=== PATIENT | male | born 1965 | race Caucasian/White ===

== ENCOUNTER 2021-03-10 06:43 | Outpatient (REF) | payer OTHER, SELFPAY ==
[2021-03-10 07:52] LABS: Alanine Aminotransferase 30 U/L (0-40); Anion Gap 14 (12-20); Blood Urea Nitrogen 22 mg/dL (9-16); Carbon Dioxide 25 mmol/L (22-29); Chloride 102 mmol/L (96-108); Cholesterol 248 mg/dL; Estimated Glomerular Filt Rate > 60; HDL Cholesterol 105 mg/dL; LDL Cholesterol Calculated 129 mg/dl; Potassium 4.5 mmol/L (3.3-5.1); Sodium 136 mmol/L (135-145); Triglycerides 73 mg/dL
[2021-03-10 08:23] LABS: Prostate Specific Antigen 0.76 ng/mL (<0.05-4.0)
== END 2021-03-10 06:44 | disposition home or self-care (01) ==
LOC: HO.LAB 06:43
PROVIDERS: PCP Internal Medicine; Visit Provider Internal Medicine
DX: Z00.00 Encounter for general adult medical examination without abnormal findings (principal); Z12.5 Encounter for screening for malignant neoplasm of prostate; I10 Essential (primary) hypertension; E78.00 Pure hypercholesterolemia, unspecified
CPT/HCPCS: 36415; 80051; 80061; 82565; 84153; 84460; 84520

== ENCOUNTER 2022-03-30 06:57 | Outpatient (REF) | payer OTHER, SELFPAY ==
[2022-03-30 08:00] LABS: Alanine Aminotransferase 81 U/L (0-40); Anion Gap 13 (12-20); Blood Urea Nitrogen 18 mg/dL (9-16); Carbon Dioxide 26 mmol/L (22-29); Chloride 102 mmol/L (96-108); Cholesterol 212 mg/dL; Estimated Glomerular Filt Rate > 60; HDL Cholesterol 78 mg/dL; LDL Cholesterol Calculated 119 mg/dl; Potassium 4.4 mmol/L (3.3-5.1); Sodium 137 mmol/L (135-145); Triglycerides 75 mg/dL
[2022-03-30 08:22] LABS: Prostate Specific Antigen 0.66 ng/mL (<0.05-4.0)
== END 2022-03-30 06:58 | disposition home or self-care (01) ==
LOC: HO.LAB 06:57
PROVIDERS: PCP Internal Medicine; Visit Provider Internal Medicine
DX: Z00.00 Encounter for general adult medical examination without abnormal findings (principal); I10 Essential (primary) hypertension; E78.00 Pure hypercholesterolemia, unspecified; Z12.5 Encounter for screening for malignant neoplasm of prostate
CPT/HCPCS: 36415; 80051; 80061; 82565; 84153; 84460; 84520

== ENCOUNTER → 2023-01-12 10:44 | Outpatient (BNVA) | payer OTHER, SELFPAY | PROVIDERS: PCP Nurse Practitioner Family; Visit Provider Physician Assistant Medical | DX: Z13.89 Encounter for screening for other disorder (principal) | CPT/HCPCS: 99203 ==

== ENCOUNTER 2023-03-29 06:39 | Outpatient (REF) | payer OTHER, SELFPAY ==
[2023-03-29 06:53] LABS: MANUAL DIFF FLAG NO
[2023-03-29 07:34] LABS: Basophils Absolute Auto 0.1 X10*3/uL (0.0-0.2); Basophils Percent Auto 1.1 % (0-2); Eosinophils Absolute Auto 0.4 X10*3/uL (0.0-0.4); Eosinophils Percent Auto 7.2 % (0-4); Hematocrit 43.9 % (42.0-52.0); Hemoglobin 14.9 g/dl (14.0-18.0); Imm Gran Abs Auto 0.04 X10*3/uL (0.00-0.03); Imm Gran Pct Auto 0.7 % (0.0-0.4); Lymphocytes Absolute Auto 1.8 X10*3/uL (1.2-4.9); Lymphocytes Percent Auto 33.3 % (20-40); Mean Corpuscular HGB Conc 33.9 g/dl (31.0-36.0); Mean Corpuscular Hemoglobin 30.1 pg (27.0-33.0); Mean Corpuscular Volume 88.7 fL (80.0-98.0); Mean Platelet Volume 10.2 fL (9.4-12.4); Monocytes Absolute Auto 0.5 X10*3/uL (0.1-1.2); Monocytes Percent Auto 8.9 % (2-11); Neutrophils Absolute Auto 2.6 x10*3/uL (2.0-8.3); Neutrophils Percent Auto 48.8 % (45-73); Platelet Count 260 X10*3/uL (160-400); Red Blood Count 4.95 X10*6/uL (4.60-5.80); White Blood Count 5.4 X10*3/uL (4.8-10.8)
[2023-03-29 08:03] LABS: Alanine Aminotransferase 25 U/L (0-40); Anion Gap 15 (12-20); Blood Urea Nitrogen 18 mg/dL (9-16); Carbon Dioxide 23 mmol/L (22-29); Chloride 105 mmol/L (96-108); Cholesterol 223 mg/dL; Estimated Glomerular Filt Rate > 60; HDL Cholesterol 82 mg/dL; LDL Cholesterol Calculated 129 mg/dl; Potassium 4.5 mmol/L (3.3-5.1); Sodium 138 mmol/L (135-145); Triglycerides 64 mg/dL
[2023-03-29 08:22] LABS: Ferritin 281 ng/mL (20-250); Prostate Specific Antigen 0.83 ng/mL (<0.05-4.0)
== END 2023-03-29 06:40 | disposition home or self-care (01) ==
LOC: HO.LAB 06:39
PROVIDERS: PCP Internal Medicine; Visit Provider Internal Medicine
DX: Z00.00 Encounter for general adult medical examination without abnormal findings (principal); Z12.5 Encounter for screening for malignant neoplasm of prostate; I10 Essential (primary) hypertension; K50.90 Crohn's disease, unspecified, without complications; E78.00 Pure hypercholesterolemia, unspecified
CPT/HCPCS: 36415; 80051; 80061; 82565; 82728; 84153; 84460; 84520; 85025

== ENCOUNTER 2024-03-23 06:12 | Outpatient (REF) | payer OTHER, SELFPAY ==
[2024-03-23 06:20] LABS: MANUAL DIFF FLAG NO
[2024-03-23 07:49] LABS: Basophils Absolute Auto 0.1 X10*3/uL (0.0-0.2); Basophils Percent Auto 1.1 % (0-2); Eosinophils Absolute Auto 0.3 X10*3/uL (0.0-0.4); Eosinophils Percent Auto 4.5 % (0-4); Hematocrit 40.6 % (42.0-52.0); Hemoglobin 13.7 g/dl (14.0-18.0); Imm Gran Abs Auto 0.09 X10*3/uL (0.00-0.03); Imm Gran Pct Auto 1.5 % (0.0-0.4); Lymphocytes Absolute Auto 1.5 X10*3/uL (1.2-4.9); Lymphocytes Percent Auto 23.5 % (20-40); Mean Corpuscular HGB Conc 33.7 g/dl (31.0-36.0); Mean Corpuscular Hemoglobin 30.3 pg (27.0-33.0); Mean Corpuscular Volume 89.8 fL (80.0-98.0); Mean Platelet Volume 10.2 fL (9.4-12.4); Monocytes Absolute Auto 0.6 X10*3/uL (0.1-1.2); Monocytes Percent Auto 9.7 % (2-11); Neutrophils Absolute Auto 3.7 x10*3/uL (2.0-8.3); Neutrophils Percent Auto 59.7 % (45-73); Platelet Count 258 X10*3/uL (160-400); Red Blood Count 4.52 X10*6/uL (4.60-5.80); Red Cell Distribution Width 13.2 % (11.0-16.0); White Blood Count 6.2 X10*3/uL (4.8-10.8)
[2024-03-23 08:22] LABS: Alanine Aminotransferase 25 U/L (0-40); Anion Gap 12 (12-20); Blood Urea Nitrogen 15 mg/dL (9-16); Carbon Dioxide 24 mmol/L (22-29); Chloride 108 mmol/L (96-108); Cholesterol 214 mg/dL (<200); Estimated Glomerular Filt Rate > 60; HDL Cholesterol 96 mg/dL (>40); LDL Cholesterol Calculated 95 mg/dL (<100); Sodium 140 mmol/L (135-145); Triglycerides 117 mg/dL (<150)
== END 2024-03-23 06:13 | disposition home or self-care (01) ==
LOC: HO.LAB 06:12
PROVIDERS: PCP Internal Medicine; Visit Provider Internal Medicine
DX: Z00.00 Encounter for general adult medical examination without abnormal findings (principal); I10 Essential (primary) hypertension; E78.00 Pure hypercholesterolemia, unspecified; K50.10 Crohn's disease of large intestine without complications
CPT/HCPCS: 36415; 80051; 80061; 82565; 84460; 84520; 85025

== ENCOUNTER 2024-10-19 08:52 | Day surgery (SDC) | payer OTHER, SELFPAY ==
[2024-10-18 06:34] VITALS: BMI 27.7
--- NOTE | 2024-10-18 09:17 | HO.ANESPROP2 ---
Documented by User: Mayra Colon NP 10/18/24 09:17 HPI - Anesthesia Eval Consult details Narrative: 59yo M for Colonoscopy [facility] Past Medical History Medical History (Updated 10/18/24 @ 06:30 by Vanita Granados RN) Crohn's colitis Surgical History Surgical History (Updated 10/18/24 @ 06:31 by Vanita Granados RN) Hx of arthroscopy of right knee History of esophagogastroduodenoscopy (EGD) H/O colonoscopy Social History Social History Patient Tobacco Use Status: Never used Tobacco Have you been hit, kicked, punched, or otherwise hurt by someone within the past year? If so, by whom?: No Are you DNR?: No Advance Directives: No Advance Directives Information Provided: Yes Nutrition Risks: No Nutritional Risk Meds Allergies Allergy/AdvReac Type Severity Reaction Status Date / Time No Known Allergies Allergy Unverified 08/14/20 17:13 [No Known Allergies*] Home Medications ?Medication ?Instructions ?Recorded ?Confirmed ?Last Taken ?Type ibuprofen 200 mg tablet 200 mg PO Q6H PRN Pain 10/18/24 10/18/24 Unknown History lisinopril 20 mg tablet 20 mg PO DAILY 10/18/24 10/18/24 Unknown History mesalamine 1.2 gram tablet,delayed 4.8 g PO DAILY 10/18/24 10/18/24 Unknown History release omega 5-egu-sqq-fish oil 1,200 mg 1 cap PO DAILY 10/18/24 10/18/24 Unknown History (144 mg-216 mg) capsule (Fish Oil) simvastatin 20 mg tablet 20 mg PO BEDTIME 10/18/24 10/18/24 Unknown History Exam Height,Weight and Vital Signs: Height 6 ft Weight 92.533 kg Assessment and Plan Assessment Anesthesia Assessment: Chart Reviewed Documented by User: Cheryl Ayala MD 10/19/24 09:14 [facility] Past Medical History Medical History (Updated 10/18/24 @ 06:30 by Vanita Granados RN) Crohn's colitis Family History Family history of problems with anesthesia: No Surgical History Surgical History (Updated 10/18/24 @ 06:31 by Vanita Granados RN) Hx of arthroscopy of right knee History of esophagogastroduodenoscopy (EGD) H/O colonoscopy History of Problems with Anesthesia: No Social History Social History Patient Tobacco Use Status: Never used Tobacco Have you been hit, kicked, punched, or otherwise hurt by someone within the past year? If so, by whom?: No Are you DNR?: No Advance Directives: No Advance Directives Information Provided: Yes Nutrition Risks: No Nutritional Risk Meds Allergies Allergy/AdvReac Type Severity Reaction Status Date / Time No Known Allergies Allergy Unverified 08/14/20 17:13 [No Known Allergies*] Home Medications ?Medication ?Instructions ?Recorded ?Confirmed ?Last Taken ?Type ibuprofen 200 mg tablet 200 mg PO Q6H PRN Pain 10/18/24 10/18/24 Unknown History lisinopril 20 mg tablet 20 mg PO DAILY 10/18/24 10/18/24 Unknown History mesalamine 1.2 gram tablet,delayed 4.8 g PO DAILY 10/18/24 10/18/24 Unknown History release omega 5-eys-iqh-fish oil 1,200 mg 1 cap PO DAILY 10/18/24 10/18/24 Unknown History (144 mg-216 mg) capsule (Fish Oil) simvastatin 20 mg tablet 20 mg PO BEDTIME 10/18/24 10/18/24 Unknown History Exam Airway Mallampati Class: II TM Dist: >3cm Neck ROM: Full Assessment and Plan Assessment Anesthesia Assessment: Anesthesia Plan Discussed Final Anesthetic Review Family History of Problems with Anesthesia: No History of Problems with Anesthesia: No NPO: Yes ASA Class: II Final Preanesthetic Review: No Changes in Pt Med Stat, Meds/Allgs Chart Reviewed, Consent Obtained/Reviewed, Anes Risks/Benef Reviewed and DNR Form (If Appl.) Patient Risk: Low Procedure Risk: Low Anesthetic Plan Anesthetic Plan: TIVA Disposition: Standard PACU
[2024-10-19 09:06] VITALS: BP 135/78; PULSE 110; RESP 20; TEMP 36.1; O2SAT 98
[2024-10-19] MEDS: Lactated Ringers 1,000 ML 100 ML IVCONT (09:24)
[2024-10-19 11:51] VITALS: BP 93/64; PULSE 82; RESP 12; TEMP 36.4; O2SAT 93
--- NOTE | 2024-10-19 11:51 | P.BOP_ITS ---
Brief Operative Note Date of Service: 10/19/24 Pre-op diagnosis: Crohn's, screening Post-op diagnosis: other (Same, R/O dysplasia) Procedure: Colonoscopy to the cecum and TI with biopsies Surgeon: Allan Rousseau MD Anesthesia: MAC Was an Comparative Sociology Professor used for this Procedure?: No Estimated blood loss (mL): 2.0 Pathology: other (A. Ascending colon B. Transverse colon C. Descending colon D. Sigmoid colon E. Rectum) Condition: stable Disposition: PACU
[2024-10-19 12:06] VITALS: BP 105/77; PULSE 78; RESP 16; O2SAT 96
[2024-10-19 12:21] VITALS: BP 113/80; PULSE 72; RESP 16; TEMP 36.6; O2SAT 96
--- NOTE | 2024-10-19 12:35 | OP_ITS ---
DATE OF SERVICE: 10/19/2024 SURGEON: Allan Rousseau MD INDICATIONS: The patient presents for evaluation of underlying history of Crohn's colitis and colorectal cancer screening. Full consent obtained from him for this, including risks of bleeding and perforation. PREOPERATIVE DIAGNOSIS: Colorectal cancer screening and Crohn's colitis. POSTOPERATIVE DIAGNOSIS: Colorectal cancer screening and Crohn's colitis, rule out dysplasia, mild diverticulosis, small internal hemorrhoids. PROCEDURE PERFORMED: Colonoscopy to cecum and terminal ileum with multiple biopsies. ESTIMATED BLOOD LOSS: COMPLICATIONS: ANESTHESIA: Monitored anesthesia care. ASSISTANTS: SPECIMENS: DESCRIPTION OF PROCEDURE: The patient was placed in the left lateral decubitus position. The digital rectal exam revealed no abnormalities. Specifically, there was no perianal disease suggestive of Crohn disease. The Olympus video pediatric colonoscope was entered into the rectum and advanced easily to the cecum. Once in the cecum, I did identify normal-appearing cecal pouch with appendiceal orifice and a normal-appearing ileocecal valve. The terminal ileum was cannulated and appeared normal. The scope was withdrawn back in the colon. The entire cecum and ileocecal valve appeared normal. The scope was slowly withdrawn assessing all mucosal surfaces carefully. Preparation was excellent. The only area of some colitis I noted was between 20 and 30 cm. This was very mild. The remainder of the colon appeared very normal without any sign of colitis, polyps, nor angiodysplasia. There were occasional diverticula in the sigmoid colon. I obtained multiple random biopsies in the ascending colon, transverse colon, descending colon, sigmoid colon and rectum. In the rectum, scope was retroflexed visualizing internal hemorrhoids, but no other pathology. The rectal mucosa appeared normal. Scope was straightened and withdrawn from the patient. He tolerated the procedure well and was returned to the recovery area in stable condition. IMPRESSION: 1. Very minimal changes of mild Crohn's colitis. 2. Rule out dysplasia. 3. Diverticulosis. 4. Internal hemorrhoids. PLAN: The results of biopsies will be checked. I would recommend a repeat colonoscopy in 5 years for further screening. He will continue his current regimen of mesalamine 4.8 g daily. He will be seen in 1 year for followup office visit, but was advised to call sooner as needed. He was advised to stay off all aspirin and NSAIDs for at least a week, but in general try to avoid them due to the underlying inflammatory bowel disease. MD ANN Todd/WILLIAM / [id number]
== END 2024-10-19 12:35 | disposition home or self-care (01) ==
PROVIDERS: PCP Internal Medicine; Visit Provider Internal Medicine
PROC: 0DJD8ZZ Inspection of Lower Intestinal Tract, Via Natural or Artificial Opening Endoscopic (ICD-10-PCS; CPT 45378; principal; 2024-10-19 10:20)
DX: Z12.11 Encounter for screening for malignant neoplasm of colon (principal); K50.10 Crohn's disease of large intestine without complications; K57.30 Diverticulosis of large intestine without perforation or abscess without bleeding; K64.8 Other hemorrhoids; Z79.899 Other long term (current) drug therapy; Z98.890 Other specified postprocedural states
CPT/HCPCS: 45380; 88305; J2003; J2250; J2704

== ENCOUNTER 2025-03-26 06:06 | Outpatient (REF) | payer OTHER, SELFPAY ==
--- OUTSIDE RECORDS SUMMARY | 2025-03-26 06:09 | XMS_ITS ---
Author Organization [facility] Address [address] [facility] [place] [address] Care Team Providers Care Sports Development Officer Name Role Phone Matt Gaming MD Primary Care Provider Liam Roberto [phone] REASON FOR VISIT cx 01/04 appt Encounters Encounter Location Date Provider [address] [facility] [place] [address] 01/17/2024 Liam Marcelo Plan Of Treatment No Information Progress Notes * Jesse VALLES RDOB: [birth year] (58 yo M)Acc No.[id number]:01/17/2024 Patient:?Jesse Valles :1965???Age:58 Y???Sex:Male Address:[address] [place], [address] * true * Date:? Generated for Printi ng/Fadaneg/eTransmitting on:?03/26/2025 06:09 AM EDT
--- OUTSIDE RECORDS SUMMARY | 2025-03-26 06:09 | XMS_ITS ---
Author Organization [facility] Address [address] [facility] [place] [address] Care Team Providers Care Manager Of Photography Name Role Phone Matt Gaming MD Primary Care Provider Liam Roberto [phone] Encounters Encounter Location Date Provider Diagnosis [address] [address] 01/24/2024 Liam Marcelo Plan Of Treatment No Information Progress Notes * Jesse VALLES RDOB: [birth year] (60 yo M)Acc No.[id number]:01/24/2024 Progress Notes Patient:?Jesse VALLES Provider:Tammi Marcelo DPM :1965???Age:58 Y???Sex:Male William e:01/24/2024 [address] [place] Pcp:Matt Gaming MD Subjective: * Chief Complaints: * ??? * Medical History:? Objective: * Vitals:? Assessment: Plan: * Treatment: * Images: * The named appointment provid er may or may not be the originator of this progress note, and it is not deemed complete until electronically signed by the appointment provider. Sign off status: Pending * Provider:Tammi Marcelo DPM Date:? 024 Generated for Printi ng/Faxing/eTransmitting on:?03/26/2025 06:09 AM EDT
[2025-03-26 06:21] LABS: MANUAL DIFF FLAG NO
[2025-03-26 07:19] LABS: Basophils Absolute Auto 0.1 X10*3/uL (0.0-0.2); Eosinophils Absolute Auto 0.2 X10*3/uL (0.0-0.4); Eosinophils Percent Auto 4.5 % (0-4); Hematocrit 40.2 % (42.0-52.0); Hemoglobin 13.9 g/dl (14.0-18.0); Imm Gran Abs Auto 0.05 X10*3/uL (0.00-0.03); Lymphocytes Absolute Auto 1.7 X10*3/uL (1.2-4.9); Lymphocytes Percent Auto 34.3 % (20-40); Mean Corpuscular HGB Conc 34.6 g/dl (31.0-36.0); Mean Corpuscular Hemoglobin 30.5 pg (27.0-33.0); Mean Corpuscular Volume 88.2 fL (80.0-98.0); Mean Platelet Volume 10.2 fL (9.4-12.4); Monocytes Absolute Auto 0.6 X10*3/uL (0.1-1.2); Monocytes Percent Auto 11.2 % (2-11); Neutrophils Absolute Auto 2.4 x10*3/uL (2.0-8.3); Platelet Count 221 X10*3/uL (160-400); Red Blood Count 4.56 X10*6/uL (4.60-5.80); Red Cell Distribution Width 12.7 % (11.0-16.0); White Blood Count 4.9 X10*3/uL (4.8-10.8)
[2025-03-26 07:47] LABS: Alanine Aminotransferase 31 U/L (0-40); Anion Gap 12 (12-20); Blood Urea Nitrogen 17 mg/dL (9-16); Carbon Dioxide 26 mmol/L (22-29); Chloride 105 mmol/L (96-108); Cholesterol 208 mg/dL (<200); Estimated Glomerular Filt Rate > 60; HDL Cholesterol 99 mg/dL (>40); LDL Cholesterol Calculated 98 mg/dL (<100); Potassium 3.9 mmol/L (3.3-5.1); Sodium 139 mmol/L (135-145); Triglycerides 56 mg/dL (<150)
== END 2025-03-26 06:07 | disposition home or self-care (01) ==
LOC: HO.LAB 06:06
PROVIDERS: PCP Internal Medicine; Visit Provider Internal Medicine
DX: I10 Essential (primary) hypertension (principal); E78.00 Pure hypercholesterolemia, unspecified; K50.10 Crohn's disease of large intestine without complications
CPT/HCPCS: 36415; 80051; 80061; 82565; 84460; 84520; 85025

== ENCOUNTER 2025-08-15 06:01 | Outpatient (REF) | payer OTHER, SELFPAY ==
--- OUTSIDE RECORDS SUMMARY | 2024-10-19 06:20 | XMS_ITS ---
Author Organization [facility] Address [address] [place] [address] Care Team Providers Care Inspector Aluminum Boat Name Role Phone Matt Gaming MD Primary Care Provider Allan Leonard [phone] REASON FOR VISIT screening,crohn's Problems Problem Type SNOMED Code ICD Code Onset Dates Problem Status W/U Status Risk Notes Problem Diverticular disease of colon (692639929) Diverticulosis of large intestine without perforation or abscess without bleeding (K57.30) Active confirmed Encounters Encounter Location Date Provider Diagnosis [facility] Outpatient [address] [place] [phone] 10/19/2024 Allan Rousseau Crohn''s disease o f colon without complication K50.10 ; Diverticulosis of large intestine without perforation or abscess without bleeding K57.30 and Other hemorrhoids K64.8 Assessments Encounter Date Diagnosis (ICD Code) Assessment Notes Treatment Notes Treatment Clinical Notes Section Notes 10/19/2024 Crohn''s disease of colon without complication (ICD-10 - K50.10) 10/19/2024 Diverticulosis of large intestine without perforation or abscess without bleeding (ICD-10 - K57.30) 10/19/2024 Other hemorrhoids (ICD-10 - K64.8) Plan Of Treatment Next Appt Details Provider Name:Allan Rousseau , 12/11/2025 02:40:00 PM, [address], [address], [place], [address], Progress Notes * SEPIDEH VALLESDOB: 5 (60 yo M)Acc No.[id number]:10/19/2024 COLON WITH MAC Patient: SEPIDEH JULIAN Provider: Maria Esther Rousseau MD :1965 A ge:59 Y S ex:Male Date:10/19/2024 Address:[id number] Pcp:Matt Gaming MD Subjective: * Chief Complaints: * 1 . Screening,crohn's. * Medical History: Objective: * Vitals: Assessment: * Assessment: 1. C rohn''s disease of colon without complication - K50.10 (Primary) 2 . D iverticulosis of large intestine without perforation or abscess without bleeding - K57.30 ? 3 . O ther hemorrhoids - K64.8 Plan: * Treatment: * Procedure Codes: 4 5380 COLONOSCOPY AND BIOPSY, 0529F INTRVL 3+YRS PTS CLNSCP DOCD, 0528F RCMND FLW-UP 10 YRS DOCD * * The named appointment provid er may or may not be the originator of this progress note, and it is not deemed complete until electronically signed by the appointment provider. Sign off status: Pending * Provider: Maria Esther Rousseau MD Date: 1 12/19/2023 Generated for Nilda smith/Leila/Aubreyitting on: 0 08/15/2025 06:04 AM EDT
--- OUTSIDE RECORDS SUMMARY | 2025-08-15 06:05 | XMS_ITS | Patient Health Record ---
Author Organization [facility] Address [address] [facility] [place] [address] Care Team Providers Care Wine Merchant Name Role Phone Matt Gaming MD Primary Care Provider Liam Roberto Unavailable [phone] Reason For Referral No Information Medications Medication SIG (Take, Route, Fr equency, Duration) Notes Start Date End Date Status Lisinopril 20 MG 1 tablet Orally Once a day Active Plan Of Treatment Pending Test Test Name Order Date X ray : Foot, right 3V 06/14/2016 Insurance Providers Payer Name Payer Address Payer Phone Subscriber Number Group Number Insured Name Patient Relationship to Insured Coverage Start Date Coverage End Date [employer] Benefits [address] [address] [place] [address] [id number] Jesse Valles Self - patient is the insured Medical (General) History Medical History History ICD Code Measles
--- OUTSIDE RECORDS SUMMARY | 2025-08-15 06:05 | XMS_ITS | Patient Health Record ---
Author Organization [facility] Address [address] [place] [address] Care Team Providers Care Rim Fire Priming Operator Name Role Phone Mekhi REAL, Matt Primary Care Provider Allan Leonard Unavailable [phone] Allergies No Known Allergies Results Component Value Reference Range Notes Pathology Reviewed date:08/08/2025 04:08:11 PM Interpretation: Performing Lab:[facility], [address] [place] [id number] Notes/Report: Reason For Referral No Information Medications Medication SIG (Take, Route, Fr equency, Duration) Notes Start Date End Date Status predniSONE 5 MG 8 of the 5mg pills(4 0mg) daily for 1 week, and then decrease by 1 pill(5mg) per week Orally Once a day for 56 days 08/08/2025 Active Simvastatin 20 MG 1 tablet in the even ing Orally Once a day for 30 day(s) Active Fish Oil Active Lisinopril 20 MG Orally Once a day Active Mesalamine 1.2 GM TAKE 4 TABLETS BY [facility] ONCE A DAY 90 DAYS for 90 Active ibuprofen prn Active Immunizations Vaccine Route Administration Date Status Comme nts Influenza Unknown 08/28/2020 Administered Social History Tobacco Use: Social History Observation Description Date Details (start date - stop date) Never Smoker NA - NA Tobacco Use/Smoking Question Answer Notes Patient is a nonsmoker Alcohol Screen Question Answer Notes Did you have a drink contain ing alcohol in the past year? Yes How often did you have a dri nk containing alcohol in the past year? 2 to 3 times a week (3 points) How many drinks did you have on a typical day when you were drinking in the past year? 1 or 2 drinks (0 point) How often did you have 6 or more drinks on one occasion in the past year? Never (0 point) Points 3 Interpretation Negative Section Notes: Nonsmoker; occ. beer Nonsmoker; occ. beer Nonsmoker; occ. beer Problems Problem Type SNOMED Code ICD Code Onset Dates Problem Status W/U Status Risk Notes Problem 022475507 Encounter for screening for malignant neoplasm of colon (Z12.11) Active confirmed Problem Diarrhea (60977872) Diarrhea (R19.7) Active confirmed Problem Diverticular disease of colon (899618183) Diverticulosis of large intestine without perforation or abscess without bleeding (K57.30) Active confirmed Problem 9384680 Crohns disease o f large intestine without complication (K50.10) Active confirmed Problem 8425759 Crohn's disease of large intestine without complication (K50.10) Active confirmed Problem 52979429 Crohns disease o f colon without complication (K50.10) Active confirmed Problem Crohn's disease of large bowel (8701830) Crohn''s disease of colon without complication (K50.10) Active confirmed Encounters Encounter Location Date Provider Diagnosis [facility] [place] [address] [place] [phone] 10/19/2024 Allan Rousseau Crohn''s disease of colon without complication K50.10 ; Diverticulosis of large intestine without perforation or abscess without bleeding K57.30 and Other hemorrhoids K64.8 [facility] [address] [facility] [address] [place] [address] 08/08/2025 Allan Rousseau Diarrhea R19.7 and Crohn''s disease of colon without complication K50.10 Assessments Encounter Date Diagnosis (ICD Code) Assessment Notes Treatment Notes Treatment Clinical Notes Section Notes 10/19/2024 Diverticulosis of large intestine without perforation or abscess without bleeding (ICD-10 - K57.30) 10/19/2024 Crohn''s disease of colon without complication (ICD-10 - K50.10) 08/08/2025 Diarrhea (ICD-10 - R19.7) 08/08/2025 Crohn''s disease of colon without complication (ICD-10 - K50.10) 10/19/2024 Other hemorrhoids (ICD-10 - K64.8) Plan Of Treatment Pending Test Test Name Order Date CHEM 7 PROFILE 01/20/2018 CHEM 7 PROFILE 03/23/2024 LIVER PROFILE 01/20/2018 LIVER PROFILE 03/23/2024 CRP 01/20/2018 CRP 08/08/2025 CRP 03/23/2024 CBC w DIFF 08/08/2025 CBC w DIFF 03/23/2024 CBC with MANUAL DIFFERENTIAL 01/20/2018 SED RATE (ESR) 01/20/2018 SED RATE (ESR) 08/08/2025 HEPATITIS B PROFILE 03/23/2024 CLOSTRIDIUM DIFF TOXIN A&B (C DIFF) 12/30 CLOSTRIDIUM DIFF TOXIN A&B (C DIFF) 04/28 STOOL WBC 01/20/2018 STOOL WBC 05/15/2018 GIARDIA AG, STOOL EIA 01/20/2018 GIARDIA AG, STOOL EIA 05/15/2018 OVA & PARASITES (O&P) 05/15/2018 OVA & PARASITES (O&P) 01/20/2018 CULTURE, STOOL 01/20/2018 CULTURE, STOOL 05/15/2018 Liver Panel 08/08/2025 CDiff with Reflex to PCR 08/08/2025 Calprotectin, Fecal 08/08/2025 T Spot TB 03/23/2024 GI PANEL 08/08/2025 Future Test Test Name Order Date COLONOSCOPY 06/01/2018 COLONOSCOPY 06/19/2024 Next Appt Details Provider Name:Allan Rousseau , 12/11/2025 02:40:00 PM, [address] [place] [address], [facility] [address], [place], [address], Insurance Providers Payer Name Payer Address Payer Phone Subscriber Number Group Number Insured Name Patient Relationship to Insured Coverage Start Date Coverage End Date [employer] [place] [address] [address] [place] [address] [id number] SEPIDEH VALLES Self - patient is the insured Medical (General) History Medical History History ICD Code Denies DE,DM,CVA,Lung disease,renal dise ase Crohn's colitis as below IBD--he underwent previous c olonoscopies in [address] Pope in [place] that described some Crohn's colitis although biopsies from each procedure described findings consistent with ulcerative colitis. He underwent a colonoscopy with ky in 2007 which was completely normal other than a hyperplastic polyp--all biopsies were negative for any active colitis nor dysplasia EGD with Dr. Pope 2001--gastric biops ies were negative for H. pylori Colonoscopy in 07/2018 reveal ed some mild changes of colitis in the sigmoid and descending colon; biopsies were negative for dysplasia; there were pseudopolyps noted in the ascending colon with biopsies negative for any adenomatous changes Flare ups of the Crohn's in 2021 and 02/27 024 requiring prednisone Surgical History Surgery Date(Month/Year) right knee arthroscopy 2017
[2025-08-15 06:27] LABS: MANUAL DIFF FLAG NO
[2025-08-15 07:41] LABS: Hematocrit 38.6 % (42.0-52.0); Hemoglobin 13.2 g/dl (14.0-18.0); Imm Gran Abs Auto 0.13 X10*3/uL (0.00-0.03); Imm Gran Pct Auto 1.8 % (0.0-0.4); Lymphocytes Absolute Auto 1.4 X10*3/uL (1.2-4.9); Mean Corpuscular HGB Conc 34.2 g/dl (31.0-36.0); Mean Corpuscular Hemoglobin 30.9 pg (27.0-33.0); Mean Corpuscular Volume 90.4 fL (80.0-98.0); NRBC Abs Auto 0.000 X10*3/uL (0.0-0.012); NRBC Pct Auto 0.0 /100WBC (0.0-0.2); Platelet Count 252 X10*3/uL (160-400); Red Blood Count 4.27 X10*6/uL (4.60-5.80); White Blood Count 7.1 X10*3/uL (4.8-10.8)
[2025-08-15 08:54] LABS: Alanine Aminotransferase 52 U/L (0-40); Albumin Level 4.5 g/dL (3.5-5.0); Alkaline Phosphatase 46 U/L (39-117); Aspartate Amino Transferase 33 U/L (5-37); Total Protein 6.8 g/dL (6.5-8.0)
[2025-08-15 10:13] LABS: CDiff Gene PCR NEGATIVE (Negative)
[2025-08-15 11:25] LABS: E. coli EAEC Not Detected (Not Detect.); E. coli EPEC Not Detected (Not Detect.); E. coli ETEC Not Detected (Not Detect.); E. coli STEC Not Detected (Not Detect.); Shigella sp./EIEC Not Detected (Not Detect.)
[2025-08-23 19:44] LABS: Calprotectin, Fecal 18 mcg/g
== END 2025-08-15 06:02 | disposition home or self-care (01) ==
LOC: HO.LAB 06:01
PROVIDERS: PCP Internal Medicine; Visit Provider Internal Medicine
DX: K50.10 Crohn's disease of large intestine without complications (principal); R19.7 Diarrhea, unspecified
CPT/HCPCS: 36415; 80076; 83993; 85025; 85652; 86140; 87493; 87507